=== PATIENT | female | born 1970 | race Caucasian/White ===

== ENCOUNTER 2017-12-05 01:57 | Emergency (ER) | payer OTHER ==
[~2017-12-05] VITALS: Ht 157.5 cm; Wt 57.2 kg
[2017-12-05 02:16] VITALS: BP_SYST 132
[2017-12-05] MEDS ORDERED: MORPHINE 2 MG/ML INJ. SYRINGE IVP ONE (02:30)
[2017-12-05] MEDS ORDERED: ONDANSETRON HCL 4 MG/2 ML VIAL IVP ONE (02:30)
[2017-12-05] MEDS ORDERED: NACL 0.9% 1,000 ML IV ONE (02:30)
[2017-12-05 03:53] VITALS: BP_SYST 132
== END 2017-12-05 03:53 | disposition home or self-care (01) ==
LOC: SED 01:57
DX: M62.838 Other muscle spasm (principal); R03.0 Elevated blood-pressure reading, without diagnosis of hypertension
CPT/HCPCS: 70450; 72125; 96374; 96375; 99284; J2270; J2405; J7030

== ENCOUNTER 2020-06-08 08:16 | Day surgery (SDC) | payer OTHER, SELFPAY ==
[~2020-06-08] VITALS: Ht 157.5 cm; Wt 56.7 kg
[~2020-06-08 08:16] MED LIST: CEFAZOLIN SOD 1 GM in D5W 50 ML IV ONE
[2020-06-08] MEDS ORDERED: BUPIVACAINE /PF 0.5% 30 ML VIAL INJ ONE (11:04)
[2020-06-08] MEDS ORDERED: DESFLURANE 15 MIN GAS INH ONE (11:04)
[2020-06-08] MEDS ORDERED: METOCLOPRAMIDE HCL 10 MG/2 ML VIAL IVP ONE (11:04)
[2020-06-08] MEDS ORDERED: DEXAMETHASONE SOD PHOSPHATE 4 MG/ML VIAL IVP ONE (11:04)
[2020-06-08] MEDS ORDERED: PROPOFOL 200MG/ 20ML VIAL (DIPRIVAN) IV ONE (11:04)
[2020-06-08] MEDS ORDERED: fentaNYL CITRATE/PF 100 MCG/2 ML AMP IVP ONE (11:04)
[2020-06-08] MEDS ORDERED: LR 1,000 ML IV.SOLN IV ONE (11:04)
[2020-06-08] MEDS ORDERED: KETOROLAC TROMETHAMINE 30 MG VIAL IVP ONE (11:04)
[2020-06-08] MEDS ORDERED: NS IRRIG SOLN 1000 ML IR ONE (11:04)
[2020-06-08] MEDS ORDERED: POLYMYXIN 500,000/BACIT.10,000 UNITS in NS IRR 1 L IR ONE (11:05)
[2020-06-08] MEDS ORDERED: HYDROmorphone 1 INJ. 1 MG/ML CARTRIDGE IVP PRN (11:30)
[2020-06-08] MEDS ORDERED: ACETAMINOPHEN I.V. 1000 MG 100 ML IV PRN (11:30)
[2020-06-08] MEDS ORDERED: OXYCODONE/ACETAMINOPHEN 5-325 TABLET PO ONE (13:45)
[2020-06-08] MEDS ORDERED: OXYCODONE/ACETAMINOPHEN 5-325 TABLET ONE (13:48)
[2020-06-08 14:57] VITALS: BP_SYST 106
== END 2020-06-08 14:50 | disposition home or self-care (01) ==
LOC: SDS 08:16 → SMU 08:20 → SDS 14:50
PROVIDERS: ATTEND Orthopaedic Surgery
DX: M77.12 Lateral epicondylitis, left elbow (principal); M93.222 Osteochondritis dissecans, left elbow; I10 Essential (primary) hypertension; J45.909 Unspecified asthma, uncomplicated; E78.5 Hyperlipidemia, unspecified; Z91.040 Latex allergy status; Z79.899 Other long term (current) drug therapy; Z20.828 Contact with and (suspected) exposure to other viral communicable diseases
CPT/HCPCS: 24102; 24359; J0690; J7060; J7120; U0003; J1100; J1885; J2704; J2765; J3010; J3490